=== PATIENT | female | born 1950 | race Caucasian/White ===

== ENCOUNTER 2023-01-04 05:32 | Day surgery (SDC) | payer OTHER, MEDICARE ==
[2023-01-02 09:59] VITALS: BMI 22.2
[2023-01-04 10:18] VITALS: TEMP 97
[2023-01-04 10:22] VITALS: BP 111/78; PULSE 62; RESP 19
== END 2023-01-04 10:22 | disposition home or self-care (01) ==
LOC: JASU-ENDO 05:32
PROVIDERS: ATTEND Internal Medicine Gastroenterology
PROC: 0DBL8ZX Excision of Transverse Colon, Via Natural or Artificial Opening Endoscopic, Diagnostic (ICD-10-PCS; principal; 2023-01-04 09:00)
DX: Z12.11 Encounter for screening for malignant neoplasm of colon (principal); D12.3 Benign neoplasm of transverse colon; K57.30 Diverticulosis of large intestine without perforation or abscess without bleeding; K64.4 Residual hemorrhoidal skin tags; Z86.010 Personal history of colon polyps; R19.4 Change in bowel habit
CPT/HCPCS: 88305-TC